=== PATIENT | male | born 1970 | race Caucasian/White ===

== ENCOUNTER 2017-03-31 11:59 | Emergency (ER) | payer OTHER ==
[2017-03-31] MEDS ORDERED: ACETAMINOPHEN 325 MG TABLET PO ONE (12:44)
--- NOTE | 2017-03-31 12:49 | ER Document Report ---
ED Head/Face/Scalp Injury - General Mode of Arrival: Ambulatory Information source: Patient TRAVEL OUTSIDE OF THE [place] IN LAST 30 DAYS: No - General Chief Complaint: Head Injury without LOC Stated Complaint: FOREHEAD LACERATION/WORK RELATED Time Seen by Provider: 03/31/17 12:40 Notes: Patient is a 46-year-old male presenting to the emergency department complaining of a laceration to the forehead onset 1 hour ago. 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 Patient complains of headache and states that his body feels numb. Patient denies any loss of consciousness or blurry vision. Patient states that his last tetanus shot was 2-3 years ago. (MYNOR GOMZE) - Related Data Allergies/Adverse Reactions: No Known Allergies Allergy (Verified 03/31/17 12:12) Past Medical History - General Information source: Patient - Social History Smoking Status: Unknown if Ever Smoked Frequency of alcohol use: None Drug Abuse: None Family History: Reviewed & Not Pertinent Patient has suicidal ideation: No Patient has homicidal ideation: No Renal/ Medical History: Denies: Hx Peritoneal Dialysis Review of Systems - Review of Systems Constitutional: No symptoms reported EENT: No symptoms reported Cardiovascular: No symptoms reported Respiratory: No symptoms reported Gastrointestinal: No symptoms reported Genitourinary: No symptoms reported Male Genitourinary: No symptoms reported Musculoskeletal: See HPI Skin: See HPI, Lesions Hematologic/Lymphatic: No symptoms reported Neurological/Psychological: No symptoms reported -: Yes All other systems reviewed and negative Physical Exam - Vital signs Vitals: Temp Pulse Resp BP Pulse Ox 98.7 F 78 18 150/98 H 98 03/31/17 12:38 03/31/17 12:38 03/31/17 12:38 03/31/17 12:38 03/31/17 12:38 - Notes Notes: GENERAL: Alert, interacts well. No acute distress. HEAD: Normocephalic, Laceration which is approximately 2 x 2 cm located on the mid-forehead, nonlinear, nonsuturable, no crepitance. Minor hematoma. NECK: Full range of motion. Supple. Trachea midline. LUNGS: Clear to auscultation bilaterally, no wheezes, rales, or rhonchi. No respiratory distress. HEART: Regular rate and rhythm. No murmurs, gallops, or rubs. EXTREMITIES: Moves all four extremities spontaneously. (MYNOR GOMEZ) Course - Re-evaluation Re-evalutation: 03/31/17 13:52 CT head shows no acute findings. Laceration is nonsuturable. Wound was cleaned by nursing staff and bandage. Head trauma return precautions provided. Last tetanus was less than 5 years ago no need for booster. (DAVID MOYER) - Vital Signs Vital signs: Temp Pulse Resp BP Pulse Ox 98.0 F 75 16 148/95 H 100 03/31/17 14:01 03/31/17 14:01 03/31/17 14:01 03/31/17 14:01 03/31/17 14:01 Discharge - Discharge Clinical Impression: Head trauma Qualifiers: Encounter type: initial encounter Qualified Code(s): S09.90XA - Unspecified injury of head, initial encounter Forehead laceration Qualifiers: Encounter type: initial encounter Qualified Code(s): S01.81XA - Laceration without foreign body of other part of head, initial encounter Condition: Good Disposition: HOME, SELF-CARE Instructions: Head Injury Precautions ([facility]), Laceration Care ([facility]) Forms: Return to Work Scribe Attestation: 04/02/17 03:33 I personally performed the services described documentation, reviewed and edited the documentation which was dictated to describe my presence, and it accurately records my words and actions. (DAVID MOYER) Scribe Documentation - Scribe Written by Scribe:: Andreina Del Rio, 03/31/2017 12:49 acting as scribe for :: Zechariah
--- NOTE | 2017-03-31 13:22 | RADIOLOGY REPORT (SQ) ---
EXAM DESCRIPTION: CT HEAD WITHOUT COMPLETED DATE/TIME: 03/31/2017 1:03 pm REASON FOR STUDY: Direct injury COMPARISON: None. TECHNIQUE: Axial images acquired through the brain without intravenous contrast. Images reviewed wi th bone, brain and subdural windows. Images stored on PACS. All CT scanners at this facility use dose modulation, iterative reconstruction, and/or weight based d osing when appropriate to reduce radiation dose to as low as reasonably achievable (ALARA). [facility]: Dose Right [facility]: CareDose [facility]: Dose Right [facility]: Teradose 4D [facility]: Smart [employer] RADIATION DOSE: CT Rad equipment meets quality standard of care and radiation dose reduction techniq ues were employed. CTDIvol: 64.6 mGy. DLP: 1292 mGy-cm. mGy. LIMITATIONS: None. FINDINGS: VENTRICLES: Normal size and contour. CEREBRUM: No masses. No hemorrhage. No midline shift. No evidence for acute infarction. Normal gra y/white matter differentiation. No areas of low density in the white matter. CEREBELLUM: No masses. No hemorrhage. No alteration of density. No evidence for acute infarction. EXTRAAXIAL SPACES: No fluid collections. No masses. ORBITS AND GLOBE: No intra- or extraconal masses. Normal contour of globe without masses. CALVARIUM: No fracture. PARANASAL SINUSES: Mild mucous membrane thickening in the bilateral fronto ethmoid junctions and ante rior ethmoid air cells. Mild mucous membrane thickening right maxillary sinus. SOFT TISSUES: No mass or hematoma. OTHER: No other significant finding. IMPRESSION: No acute intracranial changes. Mild inflammatory findings in the paranasal sinuses EVIDENCE OF ACUTE STROKE: NO. COMMENT: Quality ID # [id number]: Final reports with documentation of one or more dose reduction techniques (e.g., Automated exposure control, adjustment of the mA and/or kV according to patient size, use of iterative reconstruction technique) TECHNICAL DOCUMENTATION: JOB ID: [id number] [employer]- All Rights Reserved
[2017-03-31 14:02] VITALS: BP 148/95
== END 2017-03-31 14:01 | disposition home or self-care (01) ==
LOC: ER 11:59
DX: S09.90XA Unspecified injury of head, initial encounter (principal); S01.81XA Laceration without foreign body of other part of head, initial encounter; R51 Headache; W22.8XXA Striking against or struck by other objects, initial encounter
CPT/HCPCS: 70450; 99283

== ENCOUNTER 2020-02-01 11:39 | Emergency (ER) | payer OTHER ==
--- NOTE | 2020-02-01 12:00 | ER Document Report ---
ED General - General Chief Complaint: Fever Stated Complaint: FEVER Time Seen by Provider: 02/01/20 11:52 Primary Care Provider: NICHOLE,NO [Primary Care Provider] - Follow up as needed Notes: Patient is a 49-year-old male with leukemia that presents to the emergency department for chief complaint of fever. Patient reports he was diagnosed with Covid earlier in the month, and overall had some achiness, and some fever chills initially, was doing better, then he states that he felt warm yesterday and took his temperature and was 102 F. He took Tylenol and has since improved has not experienced any symptoms of fever or chills since then. Denies having any nausea or vomiting, states he had some mild diarrhea a couple days ago but that has since resolved. Denies any urinary symptoms, and denies feeling short of breath or having any significant cough. He is currently on chemotherapy through a experimental trial. Past Medical History: Leukemia Past Surgical History: Denies recent or pertinent surgical history Social History: Denies current tobacco use Family History: Reviewed and noncontributory for presenting illness Allergies: Reviewed, see documented allergy list. REVIEW OF SYSTEMS: Other than noted above, the 12 point review of systems was reviewed with the patient and were negative, all pertinent findings are included in the HPI. PHYSICAL EXAMINATION: Vital signs reviewed, nursing noted reviewed. GENERAL: Well-appearing, well-nourished and in no acute distress. HEAD: Atraumatic, normocephalic. EYES: Eyes appear normal, sclera anicteric, conjunctiva are normal. ENT: Moist mucous membranes. NECK: Normal range of motion, supple without lymphadenopathy LUNGS: Breath sounds clear to auscultation bilaterally and equal. No wheezes rales or rhonchi. HEART: Regular rate and rhythm without murmurs EXTREMITIES: Nontender, good range of motion, no pitting or edema. NEUROLOGICAL: No focal neurological deficits. Moves all extremities spontaneously Motor and sensory grossly intact on exam. PSYCH: Normal mood, normal affect. SKIN: Warm, Dry, normal turgor, no rashes or lesions noted on exposed skin TRAVEL OUTSIDE OF THE [place] IN LAST 30 DAYS: No - Related Data Allergies/Adverse Reactions: No Known Allergies Allergy (Verified 03/31/17 12:12) Past Medical History - Social History Smoking Status: Unknown if Ever Smoked Family History: Reviewed & Not Pertinent Patient has homicidal ideation: No Renal/ Medical History: Denies: Hx Peritoneal Dialysis Past Surgical History: Reports: Hx Orthopedic Surgery - right shoulder Physical Exam - Vital signs Vitals: Temp Pulse Resp BP Pulse Ox 98.0 F 108 H 20 143/85 H 95 02/01/20 11:41 02/01/20 11:41 02/01/20 11:41 02/01/20 11:41 02/01/20 11:41 Course - Re-evaluation Re-evalutation: Patient seen and examined, vital signs reviewed, on exam patient overall appears well, afebrile at this time, blood cultures and urine culture obtained, patient overall appeared well, cultures will be sent off and pending, advised patient to follow-up with his primary care. UA demonstrated some questionable signs of possible urinary tract infection, will place the patient on antibiotic, just because he is on chemotherapy, and advised follow-up with his primary care and chemotherapy treatment team. Patient understood and agreed and was discharged home. - Vital Signs Vital signs: Temp Pulse Resp BP Pulse Ox 99.8 F 108 H 20 143/85 H 95 02/01/20 14:04 02/01/20 11:41 02/01/20 11:41 02/01/20 11:41 02/01/20 11:41 - Laboratory Results Result Diagrams: 02/01/20 12:30 02/01/20 12:30 Laboratory Results Interpreted: 02/01/20 02/01/20 02/01/20 12:30 12:30 14:55 MCV 79 L MCH 26.3 L RDW 14.3 H BUN 21 H Total Protein 5.9 L Urine Protein 100 H Urine Blood MODERATE H Leukocyte Esterase Rfl SMALL H Critical Laboratory Results Reviewed: No Critical Results - Radiology Results Critical Radiology Results Reviewed: No Critical Results Discharge - Discharge Clinical Impression: COVID-19 UTI (urinary tract infection) Qualifiers: Urinary tract infection type: site unspecified Hematuria presence: without hematuria Qualified Code(s): N39.0 - Urinary tract infection, site not specified Condition: Stable Disposition: HOME, SELF-CARE Instructions: COVID-19 Guidance for Persons Under Investigation, Cephalexin ([facility]) Prescriptions: Cephalexin Monohydrate [Keflex 500 mg Capsule] 500 mg PO BID 5 Days #10 capsule Referrals: LOCALMD,NO [Primary Care Provider] - Follow up as needed
[2020-02-01 13:10] LABS: ABSOLUTE EOSINOPHILS # (AUTO) 0.1 10^3/uL (0.0-0.6); ABSOLUTE LYMPHOCYTES (AUTO) 0.8 10^3/uL (0.5-4.7); ABSOLUTE MONOCYTES (AUTO) 0.7 10^3/uL (0.1-1.4); ABSOLUTE NEUT (AUTO) 3.8 10^3/uL (1.7-8.2); BASOPHILS % (AUTO) 0.6 % (0-2); EOSINOPHILS % (AUTO) 2.7 % (0-6); HEMATOCRIT 40.8 % (37.9-51.0); HEMOGLOBIN 13.6 g/dL (13.5-17.0); LYMPHOCYTES % (AUTO) 14.9 % (13-45); MEAN CORPUSCULAR HEMOGLOBIN 26.3 pg (27.0-33.4); MEAN CORPUSCULAR HGB CONC 33.4 g/dL (32.0-36.0); MEAN CORPUSCULAR VOLUME 79 fl (80-97); MONOCYTES % (AUTO) 12.1 % (3-13); PLATELET COUNT 193 10^3/uL (150-450); RED BLOOD COUNT 5.18 10^6/uL (4.35-5.55); RED CELL DISTRIBUTION WIDTH 14.3 % (11.5-14.0); SEGMENTED NEUTROPHILS % (AUTO) 69.7 % (42-78); TOTAL CELLS COUNTED % (AUTO) 100 %; WHITE BLOOD COUNT 5.4 10^3/uL (4.0-10.5)
--- NOTE | 2020-02-01 13:18 | RADIOLOGY REPORT (SQ) ---
EXAM DESCRIPTION: CHEST SINGLE VIEW IMAGES COMPLETED DATE/TIME: 02/01/2020 11:23 am REASON FOR STUDY: fever. COMPARISON: None. EXAM PARAMETERS: NUMBER OF VIEWS: One view. TECHNIQUE: Single frontal radiographic view of the chest acquired. RADIATION DOSE: NA LIMITATIONS: None. FINDINGS: LUNGS AND PLEURA: Minimal bibasilar atelectasis. No focal consolidation or pleural effusi on. No pneumothorax. MEDIASTINUM AND HILAR STRUCTURES: No masses. Contour normal. HEART AND VASCULAR STRUCTURES: Heart normal in size. Normal vasculature. BONES: No acute findings. HARDWARE: Right MediPort catheter with tip at the cavoatrial junction. OTHER: No other significant finding. IMPRESSION: NO ACUTE RADIOGRAPHIC FINDING IN THE CHEST. TECHNICAL DOCUMENTATION: JOB ID: [id number] [employer]- All Rights Reserved Reading location - IP/workstation name: [email or web address]
[2020-02-01 13:28] LABS: ALBUMIN 3.6 g/dL (3.5-5.0); ALKALINE PHOSPHATASE 98 U/L (38-126); ANION GAP 8 (5-19); ASPARTATE AMINO TRANSFERASE 43 U/L (17-59); BILIRUBIN,DIRECT 0.2 mg/dL (0.0-0.4); BILIRUBIN,TOTAL 0.8 mg/dL (0.2-1.3); BLOOD UREA NITROGEN 21 mg/dL (7-20); CALCIUM 8.9 mg/dL (8.4-10.2); CARBON DIOXIDE 24 mmol/L (22-30); CHLORIDE 105 mmol/L (98-107); GLUCOSE 93 mg/dL (75-110); POTASSIUM 3.9 mmol/L (3.6-5.0); TOTAL PROTEIN 5.9 g/dL (6.3-8.2)
[2020-02-01 15:27] LABS: APPEARANCE,URINE SLIGHTLY-CLOUDY; BILIRUBIN,URINE NEGATIVE (NEGATIVE); GLUCOSE, URINE NEGATIVE (NEGATIVE); KETONES,URINE NEGATIVE (NEGATIVE); PROTEIN,URINE 100 mg/dL (NEGATIVE); URINE SPECIFIC GRAVITY 1.028; UROBILINOGEN,URINE NEGATIVE mg/dL (<2.0)
[2020-02-01 15:30] LABS: COLOR,URINE YELLOW
[2020-02-01] MEDS ORDERED: ACETAMINOPHEN 325 MG TABLET PO ONE (16:06)
[2020-02-01 16:15] VITALS: BP 137/87
== END 2020-02-01 16:15 | disposition home or self-care (01) ==
LOC: ER 11:39
DX: U07.1 COVID-19 (principal); N39.0 Urinary tract infection, site not specified; R50.9 Fever, unspecified; C95.90 Leukemia, unspecified not having achieved remission; Z79.899 Other long term (current) drug therapy
CPT/HCPCS: 99284; 36415; 87040; 87086; 85025; 80053; 81001; 71045; J1642